=== PATIENT | female | born 2005 | race Asian ===

== ENCOUNTER 2025-08-06 01:00 | Emergency (ER) | payer OTHER ==
[~2025-08-06] VITALS: Ht 162.6 cm; Wt 53.6 kg
[2025-08-06 01:02] VITALS: TEMP 98.1
[2025-08-06] MEDS: KETOROLAC TROMETHAMINE 30 MG/ML VIAL IM ONE (02:42)
[2025-08-06 03:02] VITALS: BP 118/82; PULSE 70; RESP 17; O2SAT 100
== END 2025-08-06 03:26 | disposition home or self-care (01) ==
LOC: EMS 01:05
DX: G43.909 Migraine, unspecified, not intractable, without status migrainosus (principal); F32.A Depression, unspecified
CPT/HCPCS: 99283; 96372; J1885